=== PATIENT | male | born 1975 | race Hispanic/Latino ===

== ENCOUNTER 2023-08-11 08:34 | Emergency (ER) | payer SELFPAY ==
[~2023-08-11] VITALS: Ht 170.2 cm; Wt 72.0 kg
[2023-08-11 08:39] VITALS: BP 156/99
[2023-08-11 09:00] LABS: BASO% 1.7 % (0-3); EOS% 3.2 % (0-8); HEMATOCRIT 44.9 % (39.0-50.0); HEMOGLOBIN 15.2 g/dl (14.0-18.0); LYMPH% 45.1 % (15-41); MEAN CELL VOLUME 91.3 fL CALC (80.0-100.0); MEAN CORPUSCULAR HGB 30.9 pG CALC (26.0-32.0); MEAN CORPUSCULAR HGB CONC 33.9 g/dL CAL (32.0-36.0); MONO% 10.7 % (2-13); NEUT# 1.62 thou/uL (1.82-7.42); NEUT% 39.3 % (42-76); RED BLOOD COUNT 4.92 mill/uL (4.70-6.10); RED CELL DISTRI WIDTH 12.5 % (11.5-15.5)
[2023-08-11] MEDS ORDERED: PHENAZOPYRIDINE HCL 100 MG/TAB PO ONE (09:00)
[2023-08-11] MEDS ORDERED: KETOROLAC TROMETHAMINE 30 MG/ML SDV IV ONE (09:00)
[2023-08-11 09:01] VITALS: BP 122/76
[2023-08-11 09:04] LABS: URINE BILIRUBIN - DIPSTICK Negative (NEGATIVE); URINE BLOOD DIPSTICK Trace-intact (NEGATIVE); URINE GLUCOSE - DIPSTICK Negative (NEGATIVE); URINE KETONE Negative (NEGATIVE); URINE LEUK ESTERASE Negative (NEGATIVE); URINE NITRITE - DIPSTICK Negative (Negative); URINE PROTEIN - DIPSTICK Negative (NEG-TRACE); URINE SPECIFIC GRAVITY 1.025; URINE UROBILINOGEN - DIPSTICK 0.2 E.U./dL (0.2)
[2023-08-11 09:06] LABS: URINE COLOR Yellow
[2023-08-11 09:20] LABS: ALBUMIN 4.7 g/dL (3.2-5.0); ALKALINE PHOSPHATASE 73 u/l (38-126); ANION GAP 10 (6-22 (CALC)); BILIRUBIN, TOTAL 1.2 mg/dL (0.2-1.3); BUN 21 mg/dL (9-20); BUN/CREATININE RATIO 22 (12-20 (CALC)); CARBON DIOXIDE 29 mmol/l (22-30); CHLORIDE 104 mmol/l (95-108); CREATININE 0.9 mg/dL (0.7-1.3); GFR FOR AFR.AMER. > 60 ML/MIN (>=60 (CALC)); GFR OTHER RACES > 60 ML/MIN (>=60 (CALC)); SGOT/AST 40 u/l (17-59); SODIUM 139 mmol/l (137-146); TOTAL PROTEIN 7.8 g/dL (6.3-8.2)
[2023-08-11 12:01] VITALS: BP 121/81
[2023-08-11] MEDS ORDERED: MIRALAX17 GM PO (12:35)
[2023-08-11] MEDS ORDERED: IBUPROFEN600 MG PO (12:35)
[2023-08-11 12:41] VITALS: BP 121/81
== END 2023-08-11 12:55 | disposition home or self-care (01) | DRG 392 ==
LOC: ED 08:34
PROVIDERS: Emergency Medicine
DX: K59.00 Constipation, unspecified (principal); K57.30 Diverticulosis of large intestine without perforation or abscess without bleeding; I10 Essential (primary) hypertension